=== PATIENT | male | born 1930 | race Caucasian/White ===

== ENCOUNTER 2018-02-05 18:09 | Emergency (ER) | payer MEDICARE ==
[~2018-02-05] VITALS: Ht 180.3 cm; Wt 82.0 kg
[2018-02-05 18:40] LABS: BASOPHILS # (AUTO) 0.05 x10^3/uL (0-0.1); BASOPHILS % (AUTO) 1 % (0-1); EOSINOPHILS # (AUTO) 0.12 x10^3/uL (0-0.4); EOSINOPHILS % (AUTO) 2 % (1-7); LYMPHOCYTES # (AUTO) 1.22 x10^3/uL (1-3.4); LYMPHOCYTES % (AUTO) 19 % (22-44); MD NO; MEAN CORPUSCULAR HGB CONC 33.5 g/dL (33.2-36.2); MEAN CORPUSCULAR VOLUME 98.6 fL (81-97); MEAN PLATELET VOLUME 7.6 fL (7.4-10.4); MONOCYTES # (AUTO) 0.62 x10^3/uL (0.2-0.8); MONOCYTES % (AUTO) 10 % (2-9); NEUTROPHILS # (AUTO) 4.44 x10^3/uL (1.8-6.8); NEUTROPHILS % (AUTO) 69 % (42-75); PLATELET COUNT 165 x10^3/uL (130-400); RED CELL DISTRIBUTION WIDTH 14.5 % (9.4-14.8)
[2018-02-05 18:50] LABS: INTERNATIONAL NORMALIZED RATIO 0.99 (0.93-1.1); PROTHROMBIN TIME 10.2 Seconds (9.6-11.5)
[2018-02-05 18:53] LABS: ANION GAP 9 mmol/L (5-15); CALCIUM 8.9 mg/dL (8.5-10.1); CHLORIDE 110 mmol/L (98-107); CREATININE 1.15 mg/dL (0.7-1.3)
[2018-02-05] MEDS ORDERED: RIVAROXABAN 10 MG TABLET ONE (18:55)
[2018-02-05] MEDS ORDERED: RIVAROXABAN 10 MG TABLET PO ONE (19:00)
[2018-02-05] MEDS ORDERED: RIVAROXABAN 15 MG TABLET PO ONE (19:00)
== END 2018-02-05 19:39 | disposition home or self-care (01) ==
LOC: ED 19:37
DX: I82.411 Acute embolism and thrombosis of right femoral vein (principal); I82.431 Acute embolism and thrombosis of right popliteal vein
CPT/HCPCS: 36415; 80048; 85025; 85610; 85730; 93005; 99285

== ENCOUNTER → 2018-02-05 | Outpatient (CLI) | payer MEDICARE | END | disposition home or self-care (01) | LOC: RAD 17:02 | PROVIDERS: ATTEND Family Medicine | DX: I82.491 Acute embolism and thrombosis of other specified deep vein of right lower extremity (principal) ==

== ENCOUNTER 2018-06-05 08:39 | Outpatient (CLI) | payer MEDICARE ==
[2018-06-05] MEDS ORDERED: OMNIPAQUE 350 MG/ML, 100ML BOTTLE ONE (14:13)
== END 2018-06-05 23:59 | disposition home or self-care (01) ==
LOC: CFH 08:39
PROVIDERS: ATTEND Family Medicine
DX: I82.411 Acute embolism and thrombosis of right femoral vein (principal); K44.9 Diaphragmatic hernia without obstruction or gangrene; N28.1 Cyst of kidney, acquired; I71.4 Abdominal aortic aneurysm, without rupture; M51.36 Other intervertebral disc degeneration, lumbar region
CPT/HCPCS: 74177; Q9967

== ENCOUNTER 2019-03-26 18:39 | Inpatient (IN) | payer MEDICARE ==
[~2019-03-26] VITALS: Ht 180.3 cm; Wt 86.4 kg
--- NOTE | 2019-03-26 19:00 | NUR ---
PT ORIENTED TO ALL QUESTIONS WITH THE EXCEPTION OF THE CURRENT YEAR AND HIS STAES THAT HIS GAIT IS VERY UNSTEADY. PT NORMALLY WALKS OUTSIDE EVERYDAY W/O DIFFICULTY. ER PA IN ROOM TO EVAL AND PIT. PLAN FOR CT EXPLAINED TO PT AND FAMILY. CT ORDERED. PT IN WHEELCHAIR AND TO LOBBY AWAITING RADIOLOGY.
--- NOTE | 2019-03-26 19:24 | NUR ---
PT BROUGHT BACK TO ROOM AND WAS TAKEN TO CT RIGHT AWAY. PT STATES "I TRIPPED IN THE RUB AND FELL AND HIT MY HEAD". PTS FAMILY IS ALSO BEDSIDE AND STATED "HIS BALANCE HAS BEEN VERY POOR LATELY AND AFTER HE FELL TONIGHT HE SEEMED CONFUSED AND NOT HIMSELF.
[2019-03-26 19:26] LABS: MEAN CORPUSCULAR HEMOGLOBIN 34.2 pg (27.5-34.5); MEAN CORPUSCULAR HGB CONC 33.4 g/dL (33.2-36.2); MEAN CORPUSCULAR VOLUME 102.2 fL (81-97); MEAN PLATELET VOLUME 8.2 fL (7.4-10.4); PLATELET COUNT 143 x10^3/uL (130-400); RED BLOOD COUNT 4.54 x10^6/uL (4.38-5.82); RED CELL DISTRIBUTION WIDTH 14.3 % (9.4-14.8)
[2019-03-26 19:36] LABS: ANION GAP 8 mmol/L (5-15); CHLORIDE 109 mmol/L (98-107); CREATININE 1.19 mg/dL (0.7-1.3)
[2019-03-26] MEDS ORDERED: RIVA20TA PO (19:47)
[2019-03-26 20:13] LABS: MD YES
[2019-03-26 20:15] LABS: <PLATELET ESTIMATE> ADEQUATE; <PLT MORPHOLOGY> NORMAL PLT MORPH; <RBC MORPHOLOGY> NORMAL; BAND#(MANUAL) 0.38 x10^3/uL; BANDS%(MANUAL) 3 % (0-7); LYMPH#(MANUAL) 0.38 x10^3/uL (1-3.4); LYMPHS% (MANUAL) 3 % (22-44); MONOS#(MANUAL) 1.75 x10^3/uL (0.3-2.7); MONOS% (MANUAL) 14 % (2-9); SEGS% (MANUAL) 80 % (42-75)
[2019-03-26] MEDS ORDERED: SODIUM CHLORIDE FLUSH 10ML SYR IVF PRN (21:00)
[2019-03-26] MEDS ORDERED: SENNA/DOCUSATE TABLET PO PRN (21:30)
[2019-03-26] MEDS ORDERED: POLYETHYLENE GLYCOL 17 GM PACKET PO PRN (21:30)
[2019-03-26] MEDS ORDERED: ACETAMINOPHEN 650 MG/20.3 ML UDC PO PRN (21:30)
[2019-03-26] MEDS ORDERED: ONDANSETRON 4 MG TABLET PO PRN (21:30)
[2019-03-26] MEDS ORDERED: ATORVASTATIN 40 MG TABLET PO SCH (21:30)
[2019-03-26] MEDS ORDERED: BISACODYL 10 MG SUPP PR PRN (21:30)
[2019-03-26 22:11] VITALS: BP 120/52
[2019-03-26 22:41] LABS: CULTURE INDICATED? YES; MICROSCOPIC INDICATED
[2019-03-27 00:49] VITALS: BP 125/75
[2019-03-27 04:10] VITALS: BP 124/55
[2019-03-27 06:08] LABS: CHOL/HDL RATIO 2.6; LDL/HDL RATIO 1.4 (0.5-3.0)
[2019-03-27] MEDS ORDERED: RIVAROXABAN 20 MG TABLET PO SCH (09:00)
[2019-03-27 09:55] VITALS: BP 109/57
[2019-03-27 14:00] VITALS: BP 103/70
[2019-03-27] MEDS ORDERED: CEFD300C37 PO (15:03)
== END 2019-03-27 16:10 | disposition home or self-care (01) | DRG 690 ==
LOC: ED 20:43 → EDIP 21:09 → 4EST 22:01
PROVIDERS: ADMIT Internal Medicine; ATTEND Family Medicine
DX: N39.0 Urinary tract infection, site not specified (principal); D72.829 Elevated white blood cell count, unspecified; D75.89 Other specified diseases of blood and blood-forming organs; S09.90XA Unspecified injury of head, initial encounter; W18.30XA Fall on same level, unspecified, initial encounter; W22.09XA Striking against other stationary object, initial encounter; Z66 Do not resuscitate; R27.0 Ataxia, unspecified; Y92.002 Bathroom of unspecified non-institutional (private) residence as the place of occurrence of the external cause; Z79.01 Long term (current) use of anticoagulants; Z86.718 Personal history of other venous thrombosis and embolism
CPT/HCPCS: 0399T; 36415; 70450; 70544; 70551; 72125; 80048; 80061; 81001; 82607; 85025; 87086; 87186; 93005; 93306; 93880; 99285; G0378

== ENCOUNTER → 2020-07-29 | Outpatient (CLI) | payer MEDICARE ==
[~2020-07-29] MED LIST: CEFD300C37 PO; REGADENOSON 0.4 MG/5 ML SYRINGE ONE; RIVA20TA PO
== END | disposition home or self-care (01) ==
LOC: CFH 07:30
PROVIDERS: ATTEND Internal Medicine Cardiovascular Disease
DX: I21.09 ST elevation (STEMI) myocardial infarction involving other coronary artery of anterior wall (principal); I25.89 Other forms of chronic ischemic heart disease; R03.0 Elevated blood-pressure reading, without diagnosis of hypertension; R94.31 Abnormal electrocardiogram [ECG] [EKG]
CPT/HCPCS: 78452; 93017; A9502; J2785

== ENCOUNTER 2020-09-20 13:08 | Day surgery (SDC) | payer MEDICARE ==
[~2020-09-20] VITALS: Ht 181.6 cm; Wt 83.1 kg
[~2020-09-20 13:08] MED LIST changes: -REGADENOSON 0.4 MG/5 ML SYRINGE ONE
[2020-09-20] MEDS ORDERED: CHLORHEXIDINE 15 ML UDC ONE (13:47)
[2020-09-20 13:50] VITALS: BP 133/60
[2020-09-20] MEDS ORDERED: VINP1POW PO (13:58)
[2020-09-20] MEDS ORDERED: ATOR10TA9 PO (13:58)
[2020-09-20] MEDS ORDERED: CALCIUM PO (13:58)
[2020-09-20] MEDS ORDERED: KRILL OIL PO (13:58)
[2020-09-20] MEDS ORDERED: ATOR20TA37 PO (13:58)
[2020-09-20] MEDS ORDERED: TAMS-11 PO (13:58)
[2020-09-20] MEDS ORDERED: LACTATED RINGERS 1,000 ML IV SCH (14:00)
[2020-09-20] MEDS ORDERED: CHLORHEXIDINE 15 ML UDC PO ONE (14:00)
[2020-09-20] MEDS ORDERED: BUPIVACAINE/PF 0.25% ONE (15:16)
[2020-09-20] MEDS ORDERED: NEOSPORIN OINT, 15GM ONE (15:16)
[2020-09-20] MEDS ORDERED: PROPOFOL 10 MG/ML, 20ML ONE (15:24)
[2020-09-20] MEDS ORDERED: FENTANYL PF 100 MCG/2ML ONE (15:24)
[2020-09-20] MEDS ORDERED: CEFAZOLIN 1,000 MG ONE (15:26)
[2020-09-20] MEDS ORDERED: EPINEPHRINE 1 MG/ML, 1ML INFIL ONE (15:56)
[2020-09-20] MEDS ORDERED: FENTANYL PF 100 MCG/2ML IV PRN (16:30)
[2020-09-20] MEDS ORDERED: METOPROLOL 1 MG/ML, 5ML IV PRN (16:30)
[2020-09-20] MEDS ORDERED: OXYcodone 5 MG/5 ML ORAL.SOL UDC PO PRN (16:30)
[2020-09-20] MEDS ORDERED: hydrALAzine 20 MG/ML, 1ML IV PRN (16:30)
[2020-09-20] MEDS ORDERED: HYDROmorphone 1 MG/ML, 1ML INJ IVPush PRN (16:30)
[2020-09-20] MEDS ORDERED: ONDANSETRON 2MG/ML, 2ML IVPush PRN (16:30)
== END 2020-09-20 18:07 | disposition home or self-care (01) ==
LOC: OUT 13:08
PROVIDERS: ATTEND Plastic Surgery
DX: D03.4 Melanoma in situ of scalp and neck (principal); E78.00 Pure hypercholesterolemia, unspecified; Z79.899 Other long term (current) drug therapy; Z85.828 Personal history of other malignant neoplasm of skin; Z72.89 Other problems related to lifestyle; Z87.891 Personal history of nicotine dependence; Z20.822 Contact with and (suspected) exposure to COVID-19
CPT/HCPCS: 11624; 15733; 88305; 88307; 88341; 88342; 93005; J0171; J0690; J2704; J3010; J7120; U0003; U0005